=== PATIENT | female | born 1960 | race Caucasian/White ===

== ENCOUNTER 2018-11-17 15:46 | Emergency (ER) | payer SELFPAY ==
[~2018-11-17] VITALS: Ht 162.6 cm; Wt 88.5 kg
[~2018-11-17 15:46] MED LIST: AMBIEN10 MG PO; AMOXICILLIN500 MG PO; CYCLOBENZAPRINE10 MG PO; DRISDOL50000 UNIT PO; ENBREL50 MG/1 M1 SQ; FLUOXETINE HCL20 MG PO; FLUTICASONE PRO16 GM NS; GABAPENTIN300 MG PO; KLONOPIN1 MG PO; KLONOPIN2 MG PO; LEVOTHYROXINE25 MCG PO; LEVOTHYROXINE50 MCG PO; MACRODANTIN100 MG PO; NAPROXEN500 MG PO; NEURONTIN800 MG PO; NEXIUM20 MG PO; PERCOCET 10-321 EACH PO; PERCOCET 7.5-31 EACH PO; PREVACID30 MG PO; PRILOSEC20 MG PO; TOPAMAX25 MG PO; ULTRAM50 MG PO; XANAX1 MG PO
--- OUTSIDE RECORDS SUMMARY | 2018-11-17 15:48 | XMS ---
PreManage Notification: DIMITRIS CAMPBELL Security Back End Engineer Events No recent Security Events currently on file CRITERIA MET - HAIRP CARE PROVIDERS Khoa Londono Current PHONE: Unknown Maryam has no Care Guidelines for this patient. EAbhishek VISIT COUNT (12 MO.) 1 CARLOS Vargas TOTAL 1 NOTE: Visits indicate total known visits. ED/UCC VISIT TRACKING (12 MO.) 11/17/2018 15:47 CARLOS [facility] [place] TYPE: Emergency COMPLAINT: - BACK PAIN NON INJURY, MEMORY ISSUES INPATIENT VISIT TRACKING (12 MO.) No inpatient visits to display in this time frame [id number]
[2018-11-17] MEDS ORDERED: CLONIDINE HCL0.2 MG PO (16:02)
[2018-11-17] MEDS ORDERED: MELOXICAM15 MG PO (16:02)
[2018-11-17] MEDS ORDERED: METFORMIN HCL500 M1 PO (16:02)
[2018-11-17] MEDS ORDERED: DULOXETINE HCL60 MG PO (16:03)
[2018-11-17] MEDS ORDERED: VYVANSE50 MG PO (16:03)
[2018-11-17] MEDS ORDERED: ZIPRASIDONE HCL60 MG PO (16:03)
[2018-11-17] MEDS ORDERED: LORAZEPAM1 MG PO (16:03)
== END 2018-11-17 17:38 | disposition home or self-care (01) ==
LOC: ED 15:46
DX: T50.905A Adverse effect of unspecified drugs, medicaments and biological substances, initial encounter (principal); F31.9 Bipolar disorder, unspecified; Z87.891 Personal history of nicotine dependence; Z90.49 Acquired absence of other specified parts of digestive tract; Z90.710 Acquired absence of both cervix and uterus; Z88.5 Allergy status to narcotic agent; Z88.8 Allergy status to other drugs, medicaments and biological substances; Z79.899 Other long term (current) drug therapy
CPT/HCPCS: 70450; 99283-25

== ENCOUNTER 2019-07-17 06:17 | Emergency (ER) | payer SELFPAY ==
[~2019-07-17] VITALS: Ht 162.6 cm; Wt 93.0 kg
[~2019-07-17 06:17] MED LIST changes: +CLONIDINE HCL0.2 MG PO; +DULOXETINE HCL60 MG PO; +LORAZEPAM1 MG PO; +MELOXICAM15 MG PO; +METFORMIN HCL500 M1 PO; +VYVANSE50 MG PO; +ZIPRASIDONE HCL60 MG PO
--- OUTSIDE RECORDS SUMMARY | 2019-07-17 06:20 | XMS ---
PreManage Notification: DIMITRIS CAMPBELL Security General Sales Manager Events No recent Security Events currently on file CRITERIA MET - HAIRP CARE PROVIDERS EDWARD LONDONO [facility] 11/19/2018-Current PHONE: [phone] Edward Londono Current [place] PHONE: Unknown Maryam has no Care Guidelines for this patient. Adrienne VISIT COUNT (12 MO.) 2 CARLOS Vargas TOTAL 2 NOTE: Visits indicate total known visits. ED/UCC VISIT TRACKING (12 MO.) 07/17/2019 06:18 CARLOS [facility]gu[facility] [place] TYPE: Emergency COMPLAINT: - COUGHING, DIFFICULTY BREATHING 11/17/2018 15:47 CARLOS [facility]gu[facility] [place] TYPE: Emergency COMPLAINT: - BACK PAIN NON INJURY, MEMORY ISSUES DIAGNOSES: - Allergy status to narcotic agent status - Acquired absence of other specified parts of digestive tract - Headache - Personal history of nicotine dependence - Bipolar disorder, unspecified - Acquired absence of both cervix and uterus - Allergy status to oth drug/meds/biol subst status - Adverse effect of unsp drug/meds/biol subst, init - Other care home (current) drug therapy INPATIENT VISIT TRACKING (12 MO.) No inpatient visits to display in this time frame [id number]
--- NOTE | 2019-07-18 11:15 | EKG ---
[facility] [address] [facility] [place], [place] [address] Signed Normal sinus rhythm Nonspecific T wave abnormality Abnormal ECG No previous ECGs available Confirmed by GLORIA CHAU DO ([id number]) on 07/18/2019 11:15:06 AM Electronically Signed By: GLORIA CHAU DO 07/18/19 1115 PATIENT NAME: DIMITRIS CAMPBELL Electrocardiogram DATE OF : 64 PHYSICIAN: GLORIA CHAU DO REPORT #: [id number] REPORT IS CONFIDENTIAL AND NOT TO BE RELEASED WITHOUT AUTHORIZATION
== END 2019-07-17 08:28 | disposition home or self-care (01) ==
LOC: ED 06:17
DX: J44.0 Chronic obstructive pulmonary disease with (acute) lower respiratory infection (principal); J20.9 Acute bronchitis, unspecified; F31.9 Bipolar disorder, unspecified; K21.9 Gastro-esophageal reflux disease without esophagitis; I10 Essential (primary) hypertension; Z87.891 Personal history of nicotine dependence; Z88.8 Allergy status to other drugs, medicaments and biological substances; Z88.5 Allergy status to narcotic agent; Z79.899 Other long term (current) drug therapy; Z79.84 Long term (current) use of oral hypoglycemic drugs
CPT/HCPCS: 71045; 80053; 83735; 84484; 85025; 93005; 93010; 94640; 99284-25

== ENCOUNTER 2019-10-22 20:21 | Emergency (ER) | payer OTHER ==
[~2019-10-22] VITALS: Ht 162.6 cm; Wt 93.4 kg
--- OUTSIDE RECORDS SUMMARY | 2019-10-22 20:24 | XMS ---
PreManage Notification: DIMITRIS CAMPBELL Security Aircraft Parts Assembler Events No recent Security Events currently on file CRITERIA MET - [facility] - [facility] EDWARD TURCI[facility] 11/19/2018-Current PHONE: [phone] Guidelines Source: [facility] Guidelines Date: 09/10/2019 Care Coordination: Currently seeking mental health services through [employer]. Please contact [employer] for any mental health concerns.\T\nbsp; [place] [phone] [place] [phone] Crisis Line [phone] E.D. VISIT COUNT (12 MO.) 3 CARLOS Vargas TOTAL 3 NOTE: Visits indicate total known visits. 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 [place] TYPE: Emergency COMPLAINT: - BACK PAIN NON INJURY, MEMORY ISSUES DIAGNOSES: - Allergy status to narcotic agent status - Acquired absence of other specified parts of digestive tract - Headache - Personal history of nicotine dependence - Bipolar disorder, unspecified - Acquired absence of both cervix and uterus - Allergy status to other drugs, medicaments and biological sub - Adverse effect of unspecified drugs, medicaments and biologic - Other jail (current) drug therapy INPATIENT VISIT TRACKING (12 MO.) No inpatient visits to display in this time frame [id number]
[2019-10-22] MEDS ORDERED: OXYCODONE HCL10 MG PO (20:38)
[2019-10-22] MEDS ORDERED: TRAZODONE HCL50 MG PO (20:39)
[2019-10-22] MEDS ORDERED: GEODON60 MG PO (20:40)
== END 2019-10-22 22:38 | disposition home or self-care (01) ==
LOC: ED 20:21
DX: S29.012A Strain of muscle and tendon of back wall of thorax, initial encounter (principal); F31.9 Bipolar disorder, unspecified; K21.9 Gastro-esophageal reflux disease without esophagitis; M06.9 Rheumatoid arthritis, unspecified; I10 Essential (primary) hypertension; Z88.5 Allergy status to narcotic agent; Z88.8 Allergy status to other drugs, medicaments and biological substances; Z79.899 Other long term (current) drug therapy; W01.0XXA Fall on same level from slipping, tripping and stumbling without subsequent striking against object, initial encounter
CPT/HCPCS: 71046; 72080; 72100; 99284-25

== ENCOUNTER 2019-11-21 21:43 | Emergency (ER) | payer OTHER ==
[~2019-11-21] VITALS: Ht 165.1 cm; Wt 88.5 kg
[~2019-11-21 21:43] MED LIST changes: +GEODON60 MG PO; +OXYCODONE HCL10 MG PO; +TRAZODONE HCL50 MG PO
--- OUTSIDE RECORDS SUMMARY | 2019-11-21 21:46 | XMS ---
PreManage Notification: DIMITRIS CAMPBELL Security Probate Clerk Events No recent Security Events currently on file CRITERIA MET - [facility] - Has Care Guidelines - PDMP - [facility] - 2 Visits in 30 Days CARE PROVIDERS EDWARD TURCIOS Family [facility] 11/19/2018-Current PHONE: [phone] Guidelines Source: [facility] [place] Guidelines Date: 09/10/2019 Care Coordination: Currently seeking mental health services through [facility]. Please contact [facility] for any mental health concerns.\T\nbsp; [place] [phone] [place] [phone] Crisis Line [phone] E.D. VISIT COUNT (12 MO.) 3 CARLOS [facility] TOTAL 3 NOTE: Visits indicate total known visits. ED/UCC VISIT TRACKING (12 MO.) 11/21/2019 21:43 CARLOS [facility] [place] TYPE: Emergency COMPLAINT: - MULTIPLE COMPLAINTS 10/22/2019 20:22 CARLOS [facility] [place] TYPE: Emergency COMPLAINT: - FALL DIAGNOSES: - Rheumatoid arthritis, unspecified - Pain in thoracic spine - Fall on same level from slipping, tripping and stumbling with - Allergy status to other drugs, medicaments and biological sub - Gastro-esophageal reflux disease without esophagitis - Bipolar disorder, unspecified - Essential (primary) hypertension - Other buttermaker helper (current) drug therapy - Allergy status to narcotic agent status - Strain of muscle and tendon of back wall of thorax, initial e 07/17/2019 06:[address] [facility] [place] TYPE: Emergency COMPLAINT: - COUGHING, DIFFICULTY BREATHING DIAGNOSES: - Essential (primary) hypertension - Personal history of nicotine dependence - assisted (current) use of oral hypoglycemic drugs - Allergy status to narcotic agent status - Other chcf (current) drug therapy - Gastro-esophageal reflux disease without esophagitis - Acute bronchitis, unspecified - Chronic obstructive pulmonary disease with acute lower respir - Bipolar disorder, unspecified - Allergy status to other drugs, medicaments and biological sub - Other chest pain INPATIENT VISIT TRACKING (12 MO.) No inpatient visits to display in this time frame [id number]
== END 2019-11-22 00:36 | disposition home or self-care (01) ==
LOC: ED 21:43
DX: R29.6 Repeated falls (principal); F31.9 Bipolar disorder, unspecified; K21.9 Gastro-esophageal reflux disease without esophagitis; I10 Essential (primary) hypertension; Z87.891 Personal history of nicotine dependence; Z88.8 Allergy status to other drugs, medicaments and biological substances; Z88.5 Allergy status to narcotic agent; Z79.899 Other long term (current) drug therapy; Z79.84 Long term (current) use of oral hypoglycemic drugs
CPT/HCPCS: 70450; 80053; 81001; 85025; 99284-25

== ENCOUNTER 2020-09-12 11:58 | Emergency (ER) | payer OTHER ==
[~2020-09-12] VITALS: Ht 165.1 cm; Wt 93.0 kg
--- OUTSIDE RECORDS SUMMARY | 2020-09-12 12:00 | XMS ---
PreManage Notification: DIMITRIS CAMPBELL Security Political Director Events No recent Security Events currently on file CRITERIA MET - [facility] - Has Care Guidelines [facility] EDWARD TURCIOS [facility] 11/19/2018-Current PHONE: [phone] Guidelines Source: [employer] [facility] Guidelines Date: 09/10/2019 Care Coordination: Currently seeking mental health services through [employer]. Please contact [employer] for any mental health concerns.\T\nbsp; [place] [phone] [place] [phone] Crisis Line [phone] E.D. VISIT COUNT (12 MO.) 3 CARLOS Vargas TOTAL 3 NOTE: Visits indicate total known visits. ED/UCC VISIT TRACKING (12 MO.) 09/12/2020 11:58 [facility] [place] TYPE: Emergency COMPLAINT: - LT ANKLE INJURY 11/21/2019 21:43 [facility] [place] TYPE: Emergency COMPLAINT: - MULTIPLE COMPLAINTS DIAGNOSES: - detention (current) use of oral hypoglycemic drugs - Other long-term (current) drug therapy - Dizziness and giddiness - Essential (primary) hypertension - Bipolar disorder, unspecified - Gastro-esophageal reflux disease without esophagitis - Personal history of nicotine dependence - Repeated falls - Allergy status to narcotic agent - Allergy status to other drugs, medicaments and biological substances 10/22/2019 20:[address] [facility] [place] TYPE: Emergency COMPLAINT: - FALL DIAGNOSES: - Rheumatoid arthritis, unspecified - Pain in thoracic spine - Fall on same level from slipping, tripping and stumbling without subsequent striking against object, initial encounter - Allergy status to other drugs, medicaments and biological substances - Gastro-esophageal reflux disease without esophagitis - Bipolar disorder, unspecified - Essential (primary) hypertension - Other buttermaker (current) drug therapy - Allergy status to narcotic agent - Strain of muscle and tendon of back wall of thorax, initial encounter INPATIENT VISIT TRACKING (12 MO.) No inpatient visits to display in this time frame [id number]
[2020-09-12] MEDS ORDERED: TRAMADOL HCL50 MG PO (12:13)
[2020-09-12] MEDS ORDERED: PROPRANOLOL HCL20 MG PO (12:13)
[2020-09-12] MEDS ORDERED: BENZTROPINE ME0.5 MG PO (12:13)
[2020-09-12] MEDS ORDERED: PRAZOSIN HCL5 MG PO (12:13)
[2020-09-12] MEDS ORDERED: MELOXICAM15 MG PO (12:14)
[2020-09-12] MEDS ORDERED: PRAMIPEXOLE0.125 MG PO (12:14)
== END 2020-09-12 13:19 | disposition home or self-care (01) ==
LOC: ED 11:58
DX: S93.402A Sprain of unspecified ligament of left ankle, initial encounter (principal); K21.9 Gastro-esophageal reflux disease without esophagitis; I10 Essential (primary) hypertension; M06.9 Rheumatoid arthritis, unspecified; Z87.891 Personal history of nicotine dependence; Z88.8 Allergy status to other drugs, medicaments and biological substances; Z88.5 Allergy status to narcotic agent; Z79.899 Other long term (current) drug therapy; X50.1XXA Overexertion from prolonged static or awkward postures, initial encounter; Z79.891 Long term (current) use of opiate analgesic; Z79.84 Long term (current) use of oral hypoglycemic drugs
CPT/HCPCS: 73610; 99283-25

== ENCOUNTER 2022-06-26 14:21 | Emergency (ER) | payer OTHER, MEDICARE ==
[~2022-06-26] VITALS: Ht 165.1 cm; Wt 88.5 kg
[~2022-06-26 14:21] MED LIST changes: +BENZTROPINE ME0.5 MG PO; +PRAMIPEXOLE0.125 MG PO; +PRAZOSIN HCL5 MG PO; +PROPRANOLOL HCL20 MG PO; +TRAMADOL HCL50 MG PO
--- OUTSIDE RECORDS SUMMARY | 2022-06-26 14:23 | XMS ---
PreManage Notification: DIMITRIS CAMPBELL Security Carbide Grinder Events No recent Security Events currently on file CRITERIA MET - HAIR CARE PROVIDERS EDWARD TURCIOS [facility] 11/19/2018-Current PHONE: Unknown AUDREY BURTON [facility] Current PHONE: Unknown Care Guidelines exist for the following facilities: [facility] ( 09/10/2019 ) Adrienne VISIT COUNT (12 MO.) 1 CARLOS Vargas TOTAL 1 NOTE: Visits indicate total known visits. ED/UCC VISIT TRACKING (12 MO.) 06/26/2022 14:21 CARLOS [facility] [place] TYPE: Emergency COMPLAINT: - EXTREMITY PAIN/INJURY INPATIENT VISIT TRACKING (12 MO.) No inpatient visits to display in this time frame [id number]
[2022-06-26] MEDS ORDERED: ULTRAM50 MG PO (14:54)
== END 2022-06-26 15:59 | disposition home or self-care (01) ==
LOC: ED 14:21
DX: S63.501A Unspecified sprain of right wrist, initial encounter (principal); S80.01XA Contusion of right knee, initial encounter; S40.011A Contusion of right shoulder, initial encounter; W01.0XXA Fall on same level from slipping, tripping and stumbling without subsequent striking against object, initial encounter; K21.9 Gastro-esophageal reflux disease without esophagitis; M06.9 Rheumatoid arthritis, unspecified; I10 Essential (primary) hypertension; Z87.891 Personal history of nicotine dependence; Z88.8 Allergy status to other drugs, medicaments and biological substances; Z88.5 Allergy status to narcotic agent; Z79.84 Long term (current) use of oral hypoglycemic drugs; Z79.899 Other long term (current) drug therapy
CPT/HCPCS: 73110; 99283-25

== ENCOUNTER 2022-09-04 08:48 | Emergency (ER) | payer MEDICARE, OTHER ==
[~2022-09-04] VITALS: Ht 165.1 cm; Wt 95.2 kg
--- OUTSIDE RECORDS SUMMARY | 2022-09-04 08:53 | XMS ---
PreManage Notification: DIMITRIS CAMPBELL Security Puppet Engineer Events No recent Security Events currently on file CRITERIA MET - PDMP CARE PROVIDERS -, Julissa- Dentist: Chief Deputy Sheriff [facility] PHONE: [phone] EDWARD TURCIOS [facility] 11/19/2018-Current PHONE: Unknown AUDREY BURTON [facility] Current PHONE: Unknown Care Guidelines exist for the following facilities: [facility] ( 09/10/2019 ) Adrienne VISIT COUNT (12 MO.) 2 CARLOS Vargas TOTAL 2 NOTE: Visits indicate total known visits. ED/UCC VISIT TRACKING (12 MO.) 09/04/2022 08:49 CARLOS [facility] [place] TYPE: Emergency COMPLAINT: - SKIN PROBLEM 06/26/2022 14:[address] [facility] [place] TYPE: Emergency COMPLAINT: - EXTREMITY PAIN/INJURY DIAGNOSES: - Personal history of nicotine dependence - Unspecified sprain of right wrist, initial encounter - Contusion of right knee, initial encounter - Contusion of right shoulder, initial encounter - joint terminal attack controller (current) use of oral hypoglycemic drugs - Fall on same level from slipping, tripping and stumbling without subsequent striking against object, initial encounter - Other keno terminal operator (current) drug therapy - Gastro-esophageal reflux disease without esophagitis - Allergy status to other drugs, medicaments and biological substances - Essential (primary) hypertension - Rheumatoid arthritis, unspecified - Pain in right shoulder - Allergy status to narcotic agent INPATIENT VISIT TRACKING (12 MO.) No inpatient visits to display in this time frame [id number]
[2022-09-04] MEDS ORDERED: DIFLUCAN200 MG PO (09:27)
[2022-09-04] MEDS ORDERED: ANTI-FUNGAL POW71 GM TOP (09:27)
== END 2022-09-04 10:05 | disposition home or self-care (01) ==
LOC: ED 08:48
DX: B37.2 Candidiasis of skin and nail (principal); I10 Essential (primary) hypertension; Z87.891 Personal history of nicotine dependence; Z88.8 Allergy status to other drugs, medicaments and biological substances; Z88.5 Allergy status to narcotic agent; Z79.84 Long term (current) use of oral hypoglycemic drugs; Z79.899 Other long term (current) drug therapy
CPT/HCPCS: 36415; 80053; 83036; 85025; 99283

== ENCOUNTER 2023-03-13 17:48 | Emergency (ER) | payer MEDICARE, OTHER ==
[~2023-03-13] VITALS: Ht 165.1 cm; Wt 84.7 kg
[~2023-03-13 17:48] MED LIST changes: +ANTI-FUNGAL POW71 GM TOP; +DIFLUCAN200 MG PO
--- OUTSIDE RECORDS SUMMARY | 2023-03-13 17:50 | XMS ---
PreManage Notification: DIMITRIS CAMPBELL Security Student Teacher Events No recent Security Events currently on file CRITERIA MET - PDMP CARE PROVIDERS EDWARD TURCIOS [facility] 11/19/2018-Current PHONE: Unknown -Julissa- Dentist: Oracle Scm Consultant [facility] PHONE: [phone] -Emmie- Dentist: Oracle Scm Consultant [facility] PHONE: [phone] MIN GUARDADO [facility] Current PHONE: [phone] Care Guidelines exist for the following facilities: [facility] ( 09/10/2019 ) Adrienne VISIT COUNT (12 MO.) [address] [facility] TOTAL 3 NOTE: Visits indicate total known visits. ED/UCC VISIT TRACKING (12 MO.) 03/13/2023 17:48 CARL[facility] [place] TYPE: Emergency COMPLAINT: - CHEST PAIN 09/04/2022 08:49 [facility] [place] TYPE: Emergency COMPLAINT: - SKIN PROBLEM DIAGNOSES: - Allergy status to narcotic agent - Allergy status to other drugs, medicaments and biological substances - Candidiasis of skin and nail - Essential (primary) hypertension - long term care social worker (current) use of oral hypoglycemic drugs - Other fci (current) drug therapy - Other skin changes - Personal history of nicotine dependence 06/26/2022 14:21 CARLOS [facility] [place] TYPE: Emergency COMPLAINT: - EXTREMITY PAIN/INJURY DIAGNOSES: - Allergy status to narcotic agent - Allergy status to other drugs, medicaments and biological substances - Contusion of right knee, initial encounter - Contusion of right shoulder, initial encounter - Essential (primary) hypertension - Fall on same level from slipping, tripping and stumbling without subsequent striking against object, initial encounter - Gastro-esophageal reflux disease without esophagitis - long term care social worker (current) use of oral hypoglycemic drugs - Other terminal gauger supervisor (current) drug therapy - Pain in right shoulder - Personal history of nicotine dependence - Rheumatoid arthritis, unspecified - Unspecified sprain of right wrist, initial encounter INPATIENT VISIT TRACKING (12 MO.) No inpatient visits to display in this time frame [id number]
[2023-03-13 18:33] VITALS: BP 00/00
--- NOTE | 2023-03-14 22:31 | EKG ---
[facility] [address] [place] [address] Signed Normal sinus rhythm Cannot rule out Anterior infarct , age undetermined Abnormal ECG When compared with ECG of 17-JUL-2019 06:26, Nonspecific T wave abnormality no longer evident in Lateral leads Confirmed by Jane Mckeon MD () on 03/14/2023 10:30:49 PM Electronically Signed By: JANE MCKEON MD 03/14/232230 PATIENT NAME: DIMITRIS CAMPBELL Electrocardiogram DATE OF : 64 PHYSICIAN: JANE MCKEON MD REPORT #: [id number] REPORT IS CONFIDENTIAL AND NOT TO BE RELEASED WITHOUT AUTHORIZATION
[2023-03-18] MEDS ORDERED: SUMATRIPTAN SU100 MG PO (12:08)
[2023-03-18] MEDS ORDERED: TOPIRAMATE50 MG PO (12:08)
[2023-03-18] MEDS ORDERED: TRAMADOL HCL E200 M1 PO (12:08)
[2023-03-18] MEDS ORDERED: LEVOTHYROXINE75 MCG PO (12:09)
[2023-03-18] MEDS ORDERED: PREGABALIN100 MG PO (12:09)
[2023-03-18] MEDS ORDERED: CYCLOBENZAPRINE10 MG PO (12:09)
== END 2023-03-13 18:19 | disposition left against medical advice (07) ==
LOC: ED 17:48
DX: R07.9 Chest pain, unspecified (principal); R42 Dizziness and giddiness; R29.6 Repeated falls; Z53.21 Procedure and treatment not carried out due to patient leaving prior to being seen by health care provider; Z88.8 Allergy status to other drugs, medicaments and biological substances; Z88.5 Allergy status to narcotic agent; Z79.899 Other long term (current) drug therapy; Z79.84 Long term (current) use of oral hypoglycemic drugs
CPT/HCPCS: 93005; 93010

== ENCOUNTER 2023-09-20 07:50 | Day surgery (SDC) | payer MEDICARE, OTHER ==
[2023-09-14 11:30] VITALS: BP 124/85
[~2023-09-20] VITALS: Ht 165.1 cm; Wt 90.0 kg
[~2023-09-20 07:50] MED LIST changes: +IBLOOD GLUCOSE TEST STRIP 1 EA TEST VI PRN; +LACTATED RINGER'S 1,000 ML IV SCH; +LEVOTHYROXINE75 MCG PO; +LIDOCAINE HCL 1% 5 ML SDV INJ ONE; +MAGNESIUM500 MG PO; +PREGABALIN100 MG PO; +SUMATRIPTAN SU100 MG PO; +TOPIRAMATE50 MG PO; +TRAMADOL HCL E200 M1 PO; +VITAMIN C250 MG PO; +VITAMIN D3125 MC2 PO; +propofoL 200 MG/20 ML VIAL ONE
[2023-09-20] MEDS ORDERED: BELSOMRA10 MG PO (08:12)
[2023-09-20 08:13] VITALS: BP 122/66
[2023-09-20] MEDS ORDERED: LACTATED RINGER'S 1,000 ML IV ONE (10:00)
--- NOTE | 2023-09-20 10:10 | NUR ---
09/20/23 Bonifacio9 Bridgett Hays 1005-PATIENT ARRIVED TO PACU ON 10L MASK RR EVEN. PATIENT NONAROUSABLE ORAL AIRWAY IN PLACE. PATIENT LAYING LEFT LATERAL ABDOMEN SOFT. IVF INFUSING. SR.
[2023-09-20 10:30] VITALS: BP 131/87
--- NOTE | 2023-09-20 12:26 | OR ---
[facility] [address] [place], [place] [address] Signed DATE OF OPERATION: 09/20/2023 SURGEON: Samantha Albert MD PREOPERATIVE DIAGNOSES: 1. Screening. 2. Internal hemorrhoids. 3. Constipation. POSTOPERATIVE DIAGNOSIS: Unremarkable colonoscopy. PROCEDURES: Colonoscopy without biopsy. ESTIMATED BLOOD LOSS: None. INDICATIONS: Dimitris is a 63-year-old obese, diabetic female, asked to see me for a followup screening colonoscopy. She has no lower GI complaints. There is no family history of colon cancer or polyps. She talked about a colonoscopy at age 52 [address]veda[address] Apparently, she had some internal hemorrhoids. She said Dr. Sepulveda helped her with some banding and it was very terrible experience. She had been referred to the office for a followup colonoscopy. In the office, I gave her a pamphlet on colonoscopy. We had reviewed the nature of the test. There is risk including, but not limited to gas bloating, crampy abdominal pain, bleeding, perforation requiring surgery, and missed diagnosis. We also reviewed the written instructions for her bowel prep line by line. She wanted to do a double bowel prep because she says she has some constipation over her life. In addition, because of her rather significant past medical history and body mass index, we asked for monitored anesthesia care with propofol infusion. She needs preoperative blood work and an EKG. She had expressed understanding and wished to proceed. PROCEDURE IN DETAIL: Dimitris was taken into our endoscopy suite and placed in the left lateral decubitus position. She was given monitored anesthesia care with propofol infusion per our nurse generation technician. A digital rectal exam was performed and this was unremarkable. There were no external hemorrhoids. She had good sphincter tone. There were no masses. The adult colonoscope was introduced and advanced under direct visualization of the camera up into Electronically Signed By: SAMANTHA ALBERT MD 09/20/23 1226 PATIENT NAME: DIMITRIS CAMPBELL OPERATIVE REPORT DATE OF : 64 REPORT #: [id number] PHYSICIAN: SAMANTHA ALBERT MD PCP: VERONICA BURTON MD REPORT IS CONFIDENTIAL AND NOT TO BE RELEASED WITHOUT AUTHORIZATION [facility] [address] [place], [place] [address] Signed the cecum itself. Her prep was quite good. We could easily see the appendiceal orifice and the ileocecal valve. The scope was then slowly withdrawn. Her entire colon and rectum were unremarkable. Upon retroflexion of the scope, she had very little in the way of any internal hemorrhoid tissue. After this, the gas was suctioned out and the colonoscope removed. Dimitris tolerated the procedure quite well. RECOMMENDATIONS: Dimitris can return in 10 years for repeat screening colonoscopy. She would be sim to continue with monitored anesthesia care in the future. MD CHAO Mayes/CHERELLE /[id number] cc: Dr. Veronica Albert MD Copies: SAMANTHA ALBERT MD ~ Electronically Signed By: SAMANTHA ALBERT MD 09/20/23 1226 PATIENT NAME: DIMITRIS CAMPBELL CHRISSY OPERATIVE REPORT DATE OF : 64 REPORT #: [id number] PHYSICIAN: SAMANTHA ALBERT MD PCP: VERONICA BURTON MD REPORT IS CONFIDENTIAL AND NOT TO BE RELEASED WITHOUT AUTHORIZATION
== END 2023-09-20 10:40 | disposition home or self-care (01) ==
LOC: DS 07:50
PROVIDERS: ATTEND Colon & Rectal Surgery
PROC: 0DJD8ZZ Inspection of Lower Intestinal Tract, Via Natural or Artificial Opening Endoscopic (ICD-10-PCS; principal; 2023-09-20 09:00)
DX: Z12.11 Encounter for screening for malignant neoplasm of colon (principal); E11.9 Type 2 diabetes mellitus without complications; E66.9 Obesity, unspecified; F31.9 Bipolar disorder, unspecified; I10 Essential (primary) hypertension; G89.4 Chronic pain syndrome; J44.9 Chronic obstructive pulmonary disease, unspecified; E03.9 Hypothyroidism, unspecified; G40.109 Localization-related (focal) (partial) symptomatic epilepsy and epileptic syndromes with simple partial seizures, not intractable, without status epilepticus; Z87.19 Personal history of other diseases of the digestive system; Z68.34 Body mass index [BMI] 34.0-34.9, adult; Z79.84 Long term (current) use of oral hypoglycemic drugs; Z79.890 Hormone replacement therapy; Z79.899 Other long term (current) drug therapy; Z88.8 Allergy status to other drugs, medicaments and biological substances; Z88.5 Allergy status to narcotic agent
CPT/HCPCS: G0121; J2704; J7121

== ENCOUNTER 2023-10-12 21:55 | Emergency (ER) | payer MEDICARE, OTHER ==
[~2023-10-12] VITALS: Ht 165.1 cm; Wt 93.7 kg
[~2023-10-12 21:55] MED LIST changes: +BELSOMRA10 MG PO; -IBLOOD GLUCOSE TEST STRIP 1 EA TEST VI PRN; -LACTATED RINGER'S 1,000 ML IV SCH; -LIDOCAINE HCL 1% 5 ML SDV INJ ONE; -propofoL 200 MG/20 ML VIAL ONE
--- OUTSIDE RECORDS SUMMARY | 2023-10-12 21:56 | XMS ---
PreManage Notification: DIMITRIS CAMPBELL Security Pipeline Welder Events 1 event(s) in the past 18 months Most recent security events: Elopement at [facility] 03/13/2023 17:48 - Patient eloped with IV in place. - Patient eloped before treatment completed. - Patient with suicidal and/or homicidal ideations eloped. Details: Patient LWBS CRITERIA MET - Group Notification - PDMP CARE PROVIDERS EDWARD TURCIOS [facility] 11/19/2018-Current PHONE: Unknown -Julissa- Dentist: Computer Tester [facility] PHONE: [phone] -Emmie- Dentist: Computer Tester [facility] PHONE: [phone] Care Guidelines exist for the following facilities: [facility] ( 09/10/2019 ) Adrienne VISIT COUNT (12 MO.) 3 CARLOS Vargas TOTAL 3 NOTE: Visits indicate total known visits. ED/UCC VISIT TRACKING (12 MO.) 10/12/2023 21:55 [facility] [place] TYPE: Emergency COMPLAINT: - CHEST PAIN 03/18/2023 10:10 [facility] [place] TYPE: Emergency COMPLAINT: - CONSTIPATION DIAGNOSES: - Allergy status to narcotic agent - Allergy status to other drugs, medicaments and biological substances - Bipolar disorder, unspecified - Constipation, unspecified - Essential (primary) hypertension - Gastro-esophageal reflux disease without esophagitis - Other retirement (current) drug therapy - Personal history of nicotine dependence 03/13/2023 17:48 [facility] [place] [facility] [place] [place] TYPE: Emergency COMPLAINT: - CHEST PAIN DIAGNOSES: - Allergy status to narcotic agent - Allergy status to other drugs, medicaments and biological substances - Chest pain, unspecified - Dizziness and giddiness - skilled nursing (current) use of oral hypoglycemic drugs - Other retirement (current) drug therapy - Procedure and treatment not carried out due to patient leaving prior to being seen by health care provider - Repeated falls INPATIENT VISIT TRACKING (12 MO.) No inpatient visits to display in this time frame [id number]
[2023-10-12] MEDS ORDERED: BUSPIRONE HCL15 MG PO (22:03)
[2023-10-12 22:06] LABS: BASOPHILS 0.6 % (0-2); EOSINOPHILS 0.7 % (0-6); HEMATOCRIT 39.2 % (35.0-50.0); HEMOGLOBIN 12.6 g/dL (12.0-18.0); LYMPHOCYTES 9.9 % (24-44); MCH 28.1 (27-36); MCHC 32.3 g/dl (30-36); MONOCYTES 3.6 % (0-12); NEUTROPHILS 85.2 % (39-80); PLATELET COUNT 321 K/uL (140-440); RDW 14.5 (10.5-15.0)
[2023-10-12 22:18] LABS: PARTIAL THROMBOPLASTIN TIME 26.5 Sec (22.9-41.3)
[2023-10-12 22:28] LABS: ALBUMIN 3.7 g/dL (3.4-5.0); ALBUMIN/GLOBULIN RATIO 0.93 (1.1-2.4); ALKALINE PHOSPHATASE 100 U/L (46-116); ALT (SGPT) 17 U/L (14-59); AST (SGOT) 12 U/L (15-37); BILIRUBIN, TOTAL 0.4 ng/dL (0.2-1.0); BUN/CREATININE RATIO 9.61 (6.0-28.6); CALCIUM 8.7 mg/dL (8.5-10.1); CARBON DIOXIDE 24 mmol/L (21-32); CHLORIDE 101 mmol/L (98-107); CREATININE, SERUM 1.04 mg/dL (0.55-1.02); GLOMERULAR FILTRATION RATE,EST 61 mL/min (>60); INR 0.96 (0.80-1.30); MAGNESIUM 1.7 mg/dL (1.8-2.4); PROTEIN, TOTAL 7.7 g/dL (6.4-8.2); PROTIME 12.1 Sec (11.2-14.2); UREA NITROGEN 10 mg/dL (7-18)
[2023-10-12 22:43] LABS: INFLUENZA B NAA NEGATIVE (NEGATIVE); RESPIRATORY SYNCYTIAL VIR NAA NEGATIVE (NEGATIVE)
[2023-10-12] MEDS ORDERED: MORPHINE SULFATE 4 MG/ML VIAL IV ONE (23:15)
[2023-10-12] MEDS ORDERED: ondansetron HCL 4 MG/2 ML VIAL IV ONE (23:30)
[2023-10-12] MEDS ORDERED: CYCLOBENZAPRINE10 MG PO (23:33)
[2023-10-12 23:50] VITALS: BP 132/81
--- NOTE | 2023-10-13 13:21 | EKG ---
[facility] [address] [facility] [place] [address] Signed Sinus tachycardia Inferior infarct , age undetermined Abnormal ECG When compared with ECG of 13-MAR-2023 17:45, Vent. rate has increased BY 48 BPM Inferior infarct is now present Nonspecific T wave abnormality now evident in Lateral leads Confirmed by Jane Mckeon MD () on 10/13/2023 1:20:57 PM Electronically Signed By: JANE MCKEON MD 10/13/23 1321 PATIENT NAME: DIMITRIS CAMPBELL Electrocardiogram DATE OF : 64 PHYSICIAN: JANE MCKEON MD REPORT #: [id number] REPORT IS CONFIDENTIAL AND NOT TO BE RELEASED WITHOUT AUTHORIZATION
== END 2023-10-12 23:48 | disposition home or self-care (01) ==
LOC: ED 21:55
PROVIDERS: Family Medicine
DX: R07.89 Other chest pain (principal); I10 Essential (primary) hypertension; K21.9 Gastro-esophageal reflux disease without esophagitis; Z87.891 Personal history of nicotine dependence; Z88.5 Allergy status to narcotic agent; Z88.8 Allergy status to other drugs, medicaments and biological substances; Z79.84 Long term (current) use of oral hypoglycemic drugs; Z79.899 Other long term (current) drug therapy; Z79.890 Hormone replacement therapy; Z11.52 Encounter for screening for COVID-19
CPT/HCPCS: 36415; 71045; 80053; 83735; 83880; 84484; 85025; 85379; 85610; 85730; 87502; 93005; 93010; 96374; 96375; 99285-25; J2270; J2405; U0002

== ENCOUNTER 2024-06-24 20:28 | Emergency (ER) | payer MEDICARE, OTHER ==
[~2024-06-24] VITALS: Ht 165.1 cm; Wt 93.0 kg
[~2024-06-24 20:28] MED LIST changes: +BUSPIRONE HCL15 MG PO
--- OUTSIDE RECORDS SUMMARY | 2024-06-24 20:35 | XMS ---
PreManage Notification: DIMITRIS CAMPBELL Security Stabilizer Operator Events 1 event(s) in the past 18 months Most recent security events: Elopement at [facility] 03/13/2023 17:48 - Patient eloped with IV in place. - Patient eloped before treatment completed. - Patient with suicidal and/or homicidal ideations eloped. Details: Patient LWBS CRITERIA MET - Group Notification CARE PROVIDERS EDWARD TURCIOS [facility] 11/19/2018-Current PHONE: Unknown -Julissa- Dentist: Middleware Solutions Architect [facility] PHONE: [phone] -Emmie- Dentist: Middleware Solutions Architect [facility] PHONE: [phone] AUDREY BURTON [facility] Current PHONE: Unknown Care Guidelines exist for the following facilities: [facility] ( 09/10/2019 ) Adrienne VISIT COUNT (12 MO.) 2 CARLOS Vargas TOTAL 2 NOTE: Visits indicate total known visits. ED/UCC VISIT TRACKING (12 MO.) 06/24/2024 20:28 [facility] [place] TYPE: Emergency COMPLAINT: - COLD SYMPTOMS 10/12/2023 21:55 [facility] [place] TYPE: Emergency COMPLAINT: - CHEST PAIN DIAGNOSES: - Allergy status to narcotic agent - Allergy status to other drugs, medicaments and biological substances - Chest pain, unspecified - Encounter for screening for COVID-19 - Essential (primary) hypertension - Gastro-esophageal reflux disease without esophagitis - Hormone replacement therapy - long term care pharmacist (current) use of oral hypoglycemic drugs - Other chest pain - Other termite renewal inspector (current) drug therapy - Personal history of nicotine dependence INPATIENT VISIT TRACKING (12 MO.) No inpatient visits to display in this time frame [id number]
[2024-06-24] MEDS ORDERED: OMEPRAZOLE20 MG PO (20:40)
[2024-06-24 21:56] LABS: CORONAVIRUS COVID-19 AG NEGATIVE (NEGATIVE); INFLUENZA A AG NEGATIVE (NEGATIVE); INFLUENZA B AG NEGATIVE (NEGATIVE)
[2024-06-24] MEDS ORDERED: ALBUTEROL/IPRATROPIUM 3 ML NEB INH ONE (22:30)
[2024-06-24] MEDS ORDERED: BENZONATATE100 MG PO (23:29)
[2024-06-24] MEDS ORDERED: METHYLPREDNISOLO4 M1 PO (23:29)
[2024-06-24] MEDS ORDERED: INHALER, ASSIST DEVICES 1 EACH SPACER MISC ONE (23:30)
[2024-06-24] MEDS ORDERED: ALBUTEROL SULFATE 8 GM HOME.PACK INH ONE (23:30)
[2024-06-24] MEDS ORDERED: predniSONE 20 MG TAB PO ONE (23:30)
[2024-06-24 23:36] VITALS: BP 147/74
== END 2024-06-24 23:36 | disposition home or self-care (01) ==
LOC: ED 20:28
PROVIDERS: Internal Medicine
DX: J20.8 Acute bronchitis due to other specified organisms (principal); I10 Essential (primary) hypertension; R73.03 Prediabetes; K21.9 Gastro-esophageal reflux disease without esophagitis; M06.9 Rheumatoid arthritis, unspecified; Z87.891 Personal history of nicotine dependence; Z88.8 Allergy status to other drugs, medicaments and biological substances; Z79.84 Long term (current) use of oral hypoglycemic drugs; Z79.890 Hormone replacement therapy; Z79.899 Other long term (current) drug therapy
CPT/HCPCS: 36415; 71045; 94640; 99285-25; J7512

== ENCOUNTER 2024-07-24 11:04 | Emergency (ER) | payer OTHER, MEDICARE ==
[~2024-07-24] VITALS: Ht 165.1 cm; Wt 89.4 kg
[~2024-07-24 11:04] MED LIST changes: +BENZONATATE100 MG PO; +METHYLPREDNISOLO4 M1 PO; +OMEPRAZOLE20 MG PO
[2024-07-24] MEDS ORDERED: OXYCODONE/APAP 10/325 TAB PO ONE (12:15)
[2024-07-24] MEDS ORDERED: HYDROCODON-ACE1 EA10 PO (15:02)
[2024-07-24 15:24] VITALS: BP 127/75
== END 2024-07-24 15:24 | disposition home or self-care (01) ==
LOC: ED 11:04
DX: M25.552 Pain in left hip (principal); I10 Essential (primary) hypertension; R73.03 Prediabetes; M06.9 Rheumatoid arthritis, unspecified; K21.9 Gastro-esophageal reflux disease without esophagitis; Z87.891 Personal history of nicotine dependence; Z88.8 Allergy status to other drugs, medicaments and biological substances; Z79.890 Hormone replacement therapy; Z79.84 Long term (current) use of oral hypoglycemic drugs; Z79.899 Other long term (current) drug therapy; W01.0XXA Fall on same level from slipping, tripping and stumbling without subsequent striking against object, initial encounter
CPT/HCPCS: 72192; 73502; 99284-25

== ENCOUNTER 2025-01-22 06:50 | Emergency (ER) | payer MEDICARE, OTHER ==
[~2025-01-22] VITALS: Ht 165.1 cm; Wt 85.0 kg
[~2025-01-22 06:50] MED LIST changes: +HYDROCODON-ACE1 EA10 PO
--- OUTSIDE RECORDS SUMMARY | 2025-01-22 06:56 | XMS ---
PreManage Notification: DIMITRIS CAMPBELL Security Upholstery Technician Events No recent Security Events currently on file CRITERIA MET - Group Notification CARE PROVIDERS EDWARD TURCIOS Family [facility] 11/19/2018-Current PHONE: Unknown -Julissa- Dentist: Armature Connector [facility] PHONE: [phone] -Emmie- Dentist: Armature Connector [facility] PHONE: [phone] AUDREY BURTON [facility] Current PHONE: Unknown Care Guidelines exist for the following facilities: [facility] Adrienne VISIT COUNT (12 MO.) [address] [facility] TOTAL 3 NOTE: Visits indicate total known visits. ED/UCC VISIT TRACKING (12 MO.) 01/22/2025 06:50 [facility] TYPE: Emergency COMPLAINT: - CHEST PAIN 07/24/2024 11:05 [facility] TYPE: Emergency COMPLAINT: - RT HIP INJURY DIAGNOSES: - Allergy status to other drugs, medicaments and biological substances - Essential (primary) hypertension - Fall on same level from slipping, tripping and stumbling without subsequent striking against object, initial encounter - Gastro-esophageal reflux disease without esophagitis - Hormone replacement therapy - ocean transportation intermediary (current) use of oral hypoglycemic drugs - Other terminal press operator (current) drug therapy - Pain in left hip - Personal history of nicotine dependence - Prediabetes - Rheumatoid arthritis, unspecified 06/24/2024 20:28 [facility] TYPE: Emergency COMPLAINT: - COLD SYMPTOMS DIAGNOSES: - Acute bronchitis due to other specified organisms - Allergy status to other drugs, medicaments and biological substances - Cough, unspecified - Essential (primary) hypertension - Gastro-esophageal reflux disease without esophagitis - Hormone replacement therapy - retirement (current) use of oral hypoglycemic drugs - Other terminal press operator (current) drug therapy - Personal history of nicotine dependence - Prediabetes - Rheumatoid arthritis, unspecified INPATIENT VISIT TRACKING (12 MO.) No inpatient visits to display in this time frame [email or web address]
[2025-01-22] MEDS ORDERED: NITROGLYCERIN PACKET TOP ONE (07:00)
[2025-01-22] MEDS ORDERED: ASPIRIN 81 MG CHEW PO ONE (07:00)
[2025-01-22] MEDS ORDERED: VITAMIN D210 MCG PO (07:03)
[2025-01-22] MEDS ORDERED: BELSOMRA5 MG PO (07:06)
[2025-01-22] MEDS ORDERED: RIZATRIPTAN5 MG PO (07:08)
[2025-01-22 07:14] LABS: BASOPHILS 0.4 % (0.1-1.2); EOSINOPHILS 1.3 % (0.7-5.8); LYMPHOCYTES 28.8 % (19.3-51.7); MCH 28.8 PG (25.6-32.2); MCHC 32.5 g/dL (32.2-35.5); MCV 88.4 fL (79.4-94.8); MONOCYTES 4.9 % (4.7-12.5); NEUTROPHILS 64.4 % (34.0-71.1); RBC 4.31 M/uL (3.93-5.22)
[2025-01-22 07:22] LABS: INR 0.92 (0.80-1.30); PROTIME 12.0 Sec (11.2-14.2)
[2025-01-22 07:35] LABS: ALT (SGPT) 21 U/L (14-59); AST (SGOT) 15 U/L (15-37); GLOMERULAR FILTRATION RATE,EST 54 mL/min (>60); PROTEIN, TOTAL 7.7 g/dL (6.4-8.2); UREA NITROGEN 11 mg/dL (7-18)
[2025-01-22] MEDS ORDERED: IBU600 MG PO (08:21)
[2025-01-22 08:53] VITALS: BP 110/71
--- NOTE | 2025-01-23 18:25 | EKG ---
[facility] [address] [place] [address] Signed Sinus bradycardia Low voltage QRS Inferior infarct (cited on or before 13-MAR-2023) Abnormal ECG When compared with ECG of 12-OCT-2023 21:54, Vent. rate has decreased BY 71 BPM Nonspecific T wave abnormality no longer evident in Lateral leads Confirmed by Chandu Haynes DO ([id number]) on 01/23/2025 6:25:18 PM Electronically Signed By: CHANDU HAYNES DO 01/23/25 182 PATIENT NAME: DIMITRIS CAMPBELL Electrocardiogram DATE OF : 64 PHYSICIAN: CHANDU HAYNES DO REPORT #: [id number] REPORT IS CONFIDENTIAL AND NOT TO BE RELEASED WITHOUT AUTHORIZATION
== END 2025-01-22 08:55 | disposition home or self-care (01) ==
LOC: ED 06:50
PROVIDERS: Family Medicine
DX: R07.89 Other chest pain (principal); I10 Essential (primary) hypertension; R73.03 Prediabetes; K21.9 Gastro-esophageal reflux disease without esophagitis; F31.9 Bipolar disorder, unspecified; Z87.891 Personal history of nicotine dependence; Z88.8 Allergy status to other drugs, medicaments and biological substances; Z79.84 Long term (current) use of oral hypoglycemic drugs; Z79.890 Hormone replacement therapy; Z79.899 Other long term (current) drug therapy
CPT/HCPCS: 36415; 71045; 80053; 83735; 83880; 84484; 85025; 85379; 85610; 99285-25; A9270